=== PATIENT | female | born 1960 | race Caucasian/White ===

== ENCOUNTER 2021-03-10 17:34 | Emergency (ER) | payer BC, SELFPAY ==
[2021-03-10 17:42] VITALS: BP 157/91; PULSE 77; RESP 16; TEMP 36.1; O2SAT 97
--- NOTE | 2021-03-10 19:29 | ED.GENADULT ---
HPI - General Adult General Chief complaint: Wound/Laceration Stated complaint: finger lac Time Seen by Provider: 03/10/21 18:40 Source: patient Mode of arrival: ambulatory Limitations: no limitations History of Present Illness HPI narrative: Patient presents for evaluation of laceration to the left index finger. She indicates she was cutting ham late this afternoon when the knife slipped and cut her in the left index finger. Reports minimal pain in the affected area, without descriptive quality or numerical rating. No loss of range of motion. No paresthesias. She is right-hand dominant. She is not diabetic. Date of last tetanus unknown. She applied a dressing and states bleeding is well controlled. No additional complaints or concerns. Related Data Home Medications Medication Instructions Recorded Confirmed No Home Medications 03/10/21 03/10/21 Allergies Allergy/AdvReac Type Severity Reaction Status Date / Time Sulfa (Sulfonamide Allergy Unknown Rash Verified 03/10/21 17:48 Antibiotics) Review of Systems Review of Systems: CONSTITUTIONAL: Denies fever, chills, or sweats. EYES: Denies visual changes, redness, or discharge. ENT: Denies rhinorrhea, congestion, sore throat, or otalgia. CARDIOVASCULAR: Denies chest pain, palpitations, or edema. RESPIRATORY: Denies cough or dyspnea. GASTROINTESTINAL: Denies abdominal pain, nausea, vomiting, or diarrhea. GENITOURINARY: Denies dysuria or hematuria. SKIN: Reports laceration to left index finger MUSCULOSKELETAL: Reports pain in left index finger. Denies back pain, joint pain, or myalgia. NEUROLOGIC: Denies headache, numbness, dizziness, or weakness. PSYCHIATRIC: Denies anxiety or depression. [facility] Past Medical History Medical History (Updated 03/10/21 @ 20:29 by Mark Candelaria, BOBO, ) No pertinent past medical history Surgical History Surgical History (Updated 03/10/21 @ 20:22 by BOBO Vasquez, ) History of eye surgery Family History Family History Mother Patient's mother is in good health Sibling Patient's sister is in good health Patient's brother is in good health Social History Social History Smoking status: Never smoker Substance use: never Living arrangements: with family Gender identity (if verbalized by the patient): Female Spiritual care concerns: No Exam Narrative: GENERAL: Well-appearing, well-nourished, and in no acute distress. HEAD: Normocephalic, atraumatic. EYES: PERRLA and EOMI. ENT: Nares clear, no rhinorrhea or epistaxis. Mucous membranes moist. Oropharynx without tonsillar hypertrophy exudate or other lesions. Bilateral TMs pearly naranjo nonbulging NECK: Supple. No adenopathy or masses. No carotid bruits or JVD CHEST: Clear to auscultation. No respiratory distress. No wheezes rales or rhonchi HEART: Regular rate and rhythm. No murmur heard. Normal peripheral pulses. ABDOMEN: Soft, nontender, nondistended, normal active bowel sounds. EXTREMITIES: Normal range of motion. No edema. SKIN: Approximately 8mm laceration to dorsal aspect of PIP of 2nd digit of left hand in flap formation. Scant amount of sanguinous drainage NEURO: No focal deficits. Alert and oriented x3. PSYCH: Normal mood and affect. Course Course Emergency Course: This is a 60-year-old female who presented with complaints of laceration to left index finger. Bleeding was well controlled on my initial examination. Two sutures were placed as wound is overlying joint surface and concern would be for wound opening. No imaging as wound fairly superficial and likelihood of retained foreign body low. Advised on wound care. Provided with splint. Advised follow up in 7-10 days for suture removal and return for signs of infection. Pt in agreement with plan of care. Vital Signs Vital signs: Vital Signs Temperature
[2021-03-10] MEDS: TETANUS,DIPHTHERIA,AC PERTUSSIS ADULT (0.5 ML) BOOSTRIX IM (20:22)
[2021-03-10] MEDS: NEOMYCIN/POLYMYXIN/BACITRACIN OINTMENT 15 GM TUBE 1 APPLIC TOPICAL (20:48)
[2021-03-10 20:53] VITALS: BP 162/92; PULSE 71; RESP 16; O2SAT 100
== END 2021-03-10 20:54 | disposition home or self-care (01) ==
PROVIDERS: Emergency Provider Nurse Practitioner
DX: S61.221A Laceration with foreign body of left index finger without damage to nail, initial encounter (principal); Z23 Encounter for immunization; W26.0XXA Contact with knife, initial encounter; Y93.G1 Activity, food preparation and clean up
CPT/HCPCS: 12001; 90471; 90715; 99283; A9270